=== PATIENT | female | born 1940 | race Caucasian/White ===

== ENCOUNTER 2017-10-23 13:38 | Emergency (ER) | payer MEDICARE ==
[2016-10-19 09:46] VITALS: BMI 29.8
[~2017-10-23 13:38] MED LIST: BAYER CHEWABLE81 MG PO; BETAPACE 120 M120 MG PO; ELIQUIS5 MG PO; LASIX20 MG PO; LIPITOR10 MG PO; LISINOPRIL2.5 MG PO; PLAVIX75 MG PO; POTASSIUM CHLOR8 ME1 PO; TENORMIN50 MG PO; VITAMIN B-121000 MCG PO
[2017-10-23 14:25] LABS: BASOPHILS 0.9 % (0-2); EOSINOPHILS 2.2 % (0-7); HEMATOCRIT 40.7 % (36.0-48.0); HEMOGLOBIN 14.2 g/dL (12-16); IMMATURE GRANULOCYTES 0.2 % (0-5); LYMPHOCYTES 25.4 % (15-50); MCH 32.9 pg (26.0-34.0); MCHC 34.9 g/dL (31.0-37.0); MCV 94.4 fL (80.0-100.0); MEAN PLATELET VOLUME 10.7 fL (7.4-10.4); MONOCYTES 10.7 % (2-11); NEUTROPHILS 60.6 % (40-80); PLATELET COUNT 84 10x3/uL (130-400); RBC 4.31 10x6/uL (4.00-5.40); RDW 11.9 % (11.5-14.5); WBC 4.5 10x3/uL (4.8-10.8)
[2017-10-23 14:41] LABS: APTT 20.1 SECONDS (22.8-39.4); INR 0.98 (0.85-1.17); PROTIME 12.6 SECONDS (11.6-15.0)
[2017-10-23 14:52] LABS: PLATELET ESTIMATE DECREASED
[2017-10-23 15:00] LABS: ALBUMIN 3.6 g/dL (3.4-5.0); ANION GAP 13.6 mmol/L (8-16); BILIRUBIN - TOTAL 0.89 mg/dL (0.2-1.3); CALCIUM 9.1 mg/dL (8.5-10.1); CARBON DIOXIDE 27.7 mmol/L (21.0-32.0); CREATININE - SERUM 0.9 mg/dL (0.6-1.3); POTASSIUM - SERUM 4.3 mmol/L (3.5-5.1); PROTEIN - SERUM 7.5 g/dL (6.4-8.2)
[2017-10-23 15:27] LABS: APPEARANCE CLEAR (CLEAR); COLOR YELLOW (YELLOW); SPECIFIC GRAVITY 1.005 (1.005-1.020)
[2017-10-23 15:28] LABS: BILIRUBIN NEGATIVE (NEGATIVE); GLUCOSE NEGATIVE (NEGATIVE); KETONE NEGATIVE (NEGATIVE); NITRITE NEGATIVE (NEGATIVE); PROTEIN NEGATIVE (NEGATIVE); UROBILINOGEN NORMAL (NORMAL)
[2017-10-23 15:28] LABS: CREATINE KINASE 74 UL (21-215)
[2017-10-23 15:31] LABS: TROPONIN-I < 0.017 ng/mL (0.000-0.060)
== END 2017-10-23 18:33 | disposition short-term general hospital (02) ==
LOC: D.ER 13:38
PROVIDERS: Emergency Medicine; Nurse Practitioner Family
DX: I63.9 Cerebral infarction, unspecified (principal); I10 Essential (primary) hypertension